=== PATIENT | female | born 1965 | race Caucasian/White ===

== ENCOUNTER 2020-07-28 05:51 | Emergency (ER) | payer OTHER ==
--- NOTE | 2020-07-28 06:17 | ED Physician Documentation ---
History of Present Illness - Stated complaint Stated Complaint: RT ARM PX - Chief complaint Chief Complaint: Ext Problem - History obtained from History obtained from: Patient - History of Present Illness Timing: Last night Pain level now: 8 Improved by: rest (not moving right shoulder) Worsened by: movement, palpation right shoulder - Additonal information Additional information: c/o right shoulder pain since last night. denies injury. worse with movement, palpation. she is right hand dominant. she moved to [facility] 2 days ago although she says her spouse did most of the work of moving. Review of Systems Constitutional: reports: Reviewed and negative Cardiac: denies: Chest pain / pressure Respiratory: denies: Dyspnea Skin: reports: Reviewed and negative Musculoskeletal: reports: Joint pain. denies: Neck pain, Back pain, Extremity pain, Extremity swelling, Joint swelling Neurologic: denies: Focal weakness, Numbness PD PAST MEDICAL HISTORY - Present Medications Home Medications: Ambulatory Orders Medication Instructions Recorded Confirmed Cyclobenzaprine [Flexeril] 10 mg PO TID PRN #20 tablet 07/28/20 oxyCODONE [Roxicodone] 5 - 10 mg PO Q6H PRN #20 tablet 07/28/20 - Allergies Allergies/Adverse Reactions: Allergies Allergy/AdvReac Type Severity Reaction Status Date / Time No Known Drug Allergies Allergy Verified 07/28/20 06:05 PD ED PE NORMAL - Vitals Vital signs reviewed: Yes - General General: Alert and oriented X 3, No acute distress (at rest, but obvious pain with movement involving right shoulder), Well developed/nourished - Neck Neck: No bony TTP - Respiratory Respiratory: No respiratory distress, Clear bilaterally - Derm Derm: Normal color, Warm and dry, No rash - Extremities Extremities: No deformity, No edema - Neuro Neuro: No motor deficit, No sensory deficit PD ED PE EXPANDED - Extremities Extremities: Tenderness, Limited ROM, Bruising (old-appearing, nontender echymosis superior aspect of right shoulder), Right shoulder. No: Swelling, Abrasion, Joint effusion, Red warm joint Results - Vitals Vitals: Vital Signs - 24 hr 07/28/20 07/28/20 06:00 07:10 Temperature 36.1 C L Heart Rate 76 79 Respiratory 17 16 Rate Blood Pressure 170/87 H 140/81 H O2 Saturation 98 97 Oxygen O2 Source Room air PD MEDICAL DECISION MAKING - ED course Complexity details: considered differential, d/w patient ED course: suspected diagnoses included strain (recently moved to the [place]), bursitis (in new living environment including new bed, new desk where she sits and works on her computer). less likely are tendinopathy or artropathy due to recent fluoroquinolone use. also consider osteoarthritis. no evidence of infectious process, no acute injury. Departure - Departure Disposition: 01 Home, Self Care Clinical Impression: Shoulder pain Condition: Good Instructions: ED Joint Pain, ED Tendinitis Rotator Cuff Follow-Up: Alon Garcia MD [Provider Admit Priv/Credential] - Prescriptions: Cyclobenzaprine [Flexeril] 10 mg PO TID PRN #20 tablet PRN Reason: Spasms oxyCODONE [Roxicodone] 5 - 10 mg PO Q6H PRN #20 tablet PRN Reason: Pain Discharge Date/Time: 07/28/20 07:12
[2020-07-28] MEDS ORDERED: oxyCODONE 5 MG TABLET PO STA (06:42)
[2020-07-28] MEDS ORDERED: CYCLOBENZAPRINE 10 MG TABLET PO STA (06:42)
[2020-07-28] MEDS ORDERED: MORPHINE 2 MG/ML CARPUJECT IM STA (06:54)
[2020-07-28 07:17] VITALS: BP 140/81
== END 2020-07-28 07:12 | disposition home or self-care (01) ==
LOC: ED 05:51
DX: M25.511 Pain in right shoulder (principal)
CPT/HCPCS: 96372; 99283; 99284; A9270

== ENCOUNTER 2020-07-30 08:45 | Emergency (ER) | payer OTHER ==
[2020-07-30 10:38] LABS: BASOPHILS % (AUTO) 0.1 %; EOSINOPHILS # (AUTO) 0.1 10^3/uL (0.0-0.7); EOSINOPHILS % (AUTO) 1.4 %; HGB - HEMOGLOBIN 12.8 g/dL (12.0-16.0); LYMPHOCYTES # (AUTO) 0.9 10^3/uL (1.5-3.5); LYMPHOCYTES % (AUTO) 13.4 %; MEAN CORPUSCULAR HGB CONC 32.7 g/dL (32.0-36.0); MONOCYTES % (AUTO) 13.8 %; PLT - PLATELET COUNT 267 10^3/uL (130-450); RED CELL DISTRIBUTION WIDTH 13.5 % (12.0-15.0)
[2020-07-30 10:48] LABS: ALBUMIN 3.3 g/dL (3.2-5.5); BILIRUBIN,TOTAL 0.7 mg/dL (0.2-1.0); CALCIUM 9.3 mg/dL (8.5-10.3); CREATININE 0.6 mg/dL (0.4-1.0); TOTAL PROTEIN 6.5 g/dL (6.7-8.2)
[2020-07-30] MEDS ORDERED: DEXAMETHASONE 10 MG/ML VIAL IVP STA ×2 (11:12→14:16)
--- NOTE | 2020-07-30 11:41 | ED Physician Documentation ---
History of Present Illness - Stated complaint Stated Complaint: LT HAND PX/RT HIP PX - Chief complaint Chief Complaint: General - History obtained from History obtained from: Patient - History of Present Illness Timing: How many days ago (4) - Additonal information Additional information: 55 y/o female has had 2 bouts of diverticulitis and 4 courses of antibiotic in the past 2 months. She has moved here from [place] and is now establishing with Dr. Bradshaw. She reports that she has now developed pains in various parts of her body that are coming and going. She has pain in the right shoulder and neck for more than a week and she has subsequently developed a pain in the right ankle without noted swelling or erythema and starting last night she developed pain in the dorsum of the left hand and the redness and swelling have increased over night. She has some pain in the lower abdomen again and this seems different than the diverticular pain. Review of Systems Constitutional: reports: Myalgias, Fatigue. denies: Fever Eyes: denies: Decreased vision Ears: denies: Ear pain Nose: denies: Rhinorrhea / runny nose, Congestion Throat: denies: Sore throat Cardiac: denies: Chest pain / pressure, Palpitations Respiratory: denies: Dyspnea, Cough GI: denies: Abdominal Pain, Nausea, Vomiting, Constipation, Diarrhea : denies: Dysuria, Frequency Skin: reports: Rash Musculoskeletal: reports: Neck pain, Back pain, Extremity pain, Joint pain, Pain with weight bearing Neurologic: denies: Generalized weakness, Focal weakness, Numbness PD PAST MEDICAL HISTORY - Present Medications Home Medications: Ambulatory Orders Medication Instructions Recorded Confirmed Cyclobenzaprine [Flexeril] 10 mg PO TID PRN #20 tablet 07/28/20 oxyCODONE [Roxicodone] 5 - 10 mg PO Q6H PRN #20 tablet 07/28/20 Cephalexin [Keflex] 500 mg PO Q6H #28 capsule 07/30/20 predniSONE [Deltasone] 10 mg PO ONCE #26 tablet 07/30/20 - Allergies Allergies/Adverse Reactions: Allergies Allergy/AdvReac Type Severity Reaction Status Date / Time No Known Drug Allergies Allergy Verified 07/30/20 08:55 PD ED PE NORMAL - Vitals Vital signs reviewed: Yes (hpyertensive .) - General General: Alert and oriented X 3, No acute distress, Well developed/nourished - HEENT HEENT: Atraumatic, PERRL, EOMI - Neck Neck: Supple, no meningeal sign, No bony TTP - Cardiac Cardiac: RRR, No murmur - Respiratory Respiratory: No respiratory distress, Clear bilaterally - Abdomen Abdomen: Normal bowel sounds, Soft, Non distended, Other (Tender to the pelvic brim bilaterally ) - Back Back: No CVA TTP, No spinal TTP - Derm Derm: Normal color, Warm and dry - Extremities Extremities: No deformity, No edema, Other (There is swelling, point tenderness and erythema to the dorsum of the left hand without lymphangitic streaking. There is tenderness to the right ankle anterior and medially. no redness or swelling. 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, No motor deficit, No sensory deficit, Normal speech Eye Opening: Spontaneous Motor: Obeys Commands Verbal: Oriented GCS Score: 15 - Psych Psych: Normal mood, Normal affect Results - Vitals Vitals: Vital Signs - 24 hr 07/30/20 07/30/20 07/30/20 08:51 09:18 11:00 Temperature 37.0 C 37.0 C 37.0 C Heart Rate 95 95 92 Respiratory 16 16 16 Rate Blood Pressure 135/95 H 135/95 H 130/90 H O2 Saturation 95 95 94 07/30/20 07/30/20 13:00 14:31 Temperature 36.6 C Heart Rate 88 89 Respiratory 16 18 Rate Blood Pressure 149/92 H 156/102 H O2 Saturation 95 98 Oxygen O2 Source Room air - Labs Labs: Laboratory Tests 07/30/20 07/30/20 07/30/20 10:25 10:25 10:35 WBC 7.0 RBC 4.00 L Hgb 12.8 Hct 39.2 MCV 98.0 MCH 32.0 H MCHC 32.7 RDW 13.5 Plt Count 267 MPV 9.0 Neut # (Auto) 5.0 Lymph # (Auto) 0.9 L [place] # (Auto) 1.0 Eos # (Auto) 0.1 Baso # (Auto) 0.0 Absolute Nucleated RBC 0.00 Nucleated RBC % 0.0 ESR 45 H Sodium 137 Potassium 3.7 Chloride 104 Carbon Dioxide 23 Anion Gap 10.0 BUN 6 Creatinine 0.6 Estimated GFR (MDRD) 103 Glucose 99 Calcium 9.3 Total Bilirubin 0.7 AST 21 ALT 19 Alkaline Phosphatase 90 C-Reactive Protein Total Protein 6.5 L Albumin 3.3 Globulin 3.2 Albumin/Globulin Ratio 1.0 Lipase 19 L Urine Color Urine Clarity Urine pH Ur Specific [place] Urine Protein Urine Glucose (UA) Urine Ketones Urine Occult Blood Urine Nitrite Urine Bilirubin Urine Urobilinogen Ur Leukocyte Esterase Urine RBC Urine WBC Ur Squamous Epith Cells Urine Bacteria Ur Microscopic Review Urine Culture Comments 07/30/20 07/30/20 10:35 12:39 WBC RBC Hgb Hct MCV MCH MCHC RDW Plt Count MPV Neut # (Auto) Lymph # (Auto) [place] # (Auto) Eos # (Auto) Baso # (Auto) Absolute Nucleated RBC Nucleated RBC % ESR Sodium Potassium Chloride Carbon Dioxide Anion Gap BUN Creatinine Estimated GFR (MDRD) Glucose Calcium Total Bilirubin AST ALT Alkaline Phosphatase C-Reactive Protein 12.6 H Total Protein Albumin Globulin Albumin/Globulin Ratio Lipase Urine Color YELLOW Urine Clarity CLEAR Urine pH 8.0 H Ur Specific [place] 1.020 Urine Protein NEGATIVE Urine Glucose (UA) NEGATIVE Urine Ketones NEGATIVE Urine Occult Blood TRACE-LYSE Urine Nitrite NEGATIVE Urine Bilirubin NEGATIVE Urine Urobilinogen 0.2 (NORMAL) Ur Leukocyte Esterase TRACE H Urine RBC 0-5 Urine WBC 0-3 Ur Squamous Epith Cells NONE SEEN Urine Bacteria Moderate H Ur Microscopic Review INDICATED Urine Culture Comments INDICATED - Rads (name of study) CT ab/pel with Radiology: Prelim report reviewed PD MEDICAL DECISION MAKING - ED course Complexity details: reviewed results, re-evaluated patient, considered differential, d/w patient ED course: 55y/o female with swelling and pain to the dorsum of the left hand consistent w ith a cellulitis has pains in her right shoulder and right ankle as well. She is somehow relating this to courses of antibiotic she has taken for diverticulitis. Today we found her inflammatory markers are elevated and she does have what appears to be cellulitis. She is placed back onto antibiotic and she is given a dose of dexamethasone here and we will place her on a course of prednisone. She has had prior issue with autoimmune urticaria. I have asked her to follow-up with a picture frame maker. Departure - Departure Disposition: 01 Home, Self Care Clinical Impression: Myofascial pain Cellulitis Qualifiers: Site of cellulitis: extremity Site of cellulitis of extremity: upper extremity Laterality: left Qualified Code(s): L03.114 - Cellulitis of left upper limb Condition: Stable Instructions: ED Infec Skin Cellulitis, ED Myofascial Pain Syndrome Follow-Up: Anthony Bradshaw MD [Provider Admit Priv/Credential] - Prescriptions: predniSONE [Deltasone] 10 mg PO ONCE #26 tablet Cephalexin [Keflex] 500 mg PO Q6H #28 capsule Comments: Today your inflammatory markers are elevated and it looks like you have an infection in the left hand. If your redness and swelling worsen this is a reason to return to the ED. Follow up with your primary to get a referral to a picture frame maker . Discharge Date/Time: 07/30/20 14:46
[2020-07-30 12:45] LABS: BILIRUBIN,URINE NEGATIVE (NEGATIVE); GLUCOSE, URINE (UA) NEGATIVE (NEGATIVE); KETONES,URINE (UA) NEGATIVE (NEGATIVE); LEUKOCYTE ESTERASE, URINE TRACE (NEGATIVE); NITRITE,URINE NEGATIVE (NEGATIVE); OCCULT BLOOD,URINE TRACE-LYSE (NEGATIVE); PROTEIN,URINE NEGATIVE (NEGATIVE); UROBILINOGEN,URINE 0.2 (NORMAL) E.U./dL (NORMAL)
[2020-07-30 12:46] LABS: CLARITY,URINE CLEAR (CLEAR)
[2020-07-30 12:58] LABS: BACTERIA,URINE Moderate /HPF (None Seen); RBC,URINE 0-5 /HPF (0-5); SQUAMOUS EPITHELIAL CELL,UR NONE SEEN (<= Few)
[2020-07-30] MEDS ORDERED: IOVERSOL 320 100 ML VIAL IVP ONE ×2 (13:02→13:20)
--- NOTE | 2020-07-30 13:37 | CT Report ---
PROCEDURE: Abdomen/Pelvis W INDICATIONS: RLQ pain CONTRAST: IV CONTRAST: Optiray 320 ml: 100 PO CONTRAST: *NO PO CONTRAST TECHNIQUE: After the administration of weight appropriate dose of intravenous contrast, 5 mm thick sections acqu ired from the diaphragms to the symphysis. 5 mm thick coronal and sagittal reformats were acquired. For radiation dose reduction, the following was used: automated exposure control, adjustment of mA and/or kV according to patient size. COMPARISON: None. FINDINGS: Image quality: Excellent. ABDOMEN: Lung bases: Lung bases are clear. Heart size is normal. Solid organs: Liver and spleen are normal in size and enhancement. Gallbladder is unremarkable. Bi liary system is non dilated. Pancreas enhances normally. No adrenal nodules. Kidneys demonstrate n ormal size and enhancement, without hydronephrosis. There is a 2.8 cm near fluid attenuation hypoden se lesion within the anterior margin of the spleen. Peritoneum and bowel: Bowel loops demonstrate normal wall thickness and caliber. A few scattered co lonic diverticula are visualized without acute inflammatory changes. Appendix is normal. No free flui d or air. Nodes and vessels: No retroperitoneal or mesenteric adenopathy by size criteria. Aorta and inferior vena cava are normal in size. Miscellaneous: No ventral hernias. PELVIS: Genitourinary: Bladder wall thickness is normal. Miscellaneous: No inguinal hernias or adenopathy. Bones: No suspicious bony lesions. No acute vertebral body compression fractures. IMPRESSION: 1. CT abdomen and pelvis without acute abnormalities identified to explain patient's symptoms. 2. Normal appendix. 3. Scattered colonic diverticulosis without acute diverticulitis. 4. A 2.8 cm splenic hypodensity which is incompletely characterized but likely represents a splenic c yst. Consider outpatient ultrasound to further characterize. Reviewed by: Raffy Crabtree MD on 07/30/2020 1:36 PM PDT Approved by: Raffy Crabtree MD on 07/30/2020 1:36 PM PDT Station ID: [id number]
[2020-07-30] MEDS ORDERED: cephALEXin 250 MG CAPSULE PO STA (14:16)
[2020-07-30 14:31] VITALS: BP 156/102
== END 2020-07-30 14:46 | disposition home or self-care (01) ==
LOC: ED 08:45
DX: L03.114 Cellulitis of left upper limb (principal); M79.18 Myalgia, other site; R76.8 Other specified abnormal immunological findings in serum; R79.82 Elevated C-reactive protein (CRP); M54.2 Cervicalgia; M25.511 Pain in right shoulder; M25.571 Pain in right ankle and joints of right foot; R10.2 Pelvic and perineal pain; Z87.19 Personal history of other diseases of the digestive system
CPT/HCPCS: 36415; 74177; 80053; 81001; 83690; 85025; 85651; 86140; 87086; 96374; 99284; A9270; Q9967; 81003

== ENCOUNTER 2023-03-06 13:57 | Outpatient (CLI) | payer OTHER ==
--- NOTE | 2023-03-07 12:11 | Mammography Report ---
BILATERAL DIGITAL SCREENING MAMMOGRAM 3D/2D: 03/06/2023 CLINICAL: Routine screening. Family history of breast cancer. No prior exams were available for comparison. There are scattered areas of fibroglandular density in both breasts (category b / 25%-50% glandular t issue). No significant masses, calcifications, or other findings are seen in either breast. IMPRESSION: NEGATIVE There is no mammographic evidence of malignancy. A 1 year screening mammogram is recommended. Based on Tyrer-Cuzick model (a risk assessment model), the patient's lifetime risk is 22.1% and her 1 0 year risk is 8.9%. If a patient has an elevated risk, a more comprehensive evaluation should be con sidered and/or a referral to a genetic counselor. The [place] [employer], [place] [employer], and NCCN Guidelines advise the consideration of Breast MRI as an adjunct to screening mammog tay in patients whose "Lifetime risk to develop breast cancer" is 20% or higher. This exam was interpreted at Station ID: [id number]. NOTE: For mammograms, a report in lay terms will be sent to the patient. Approximately 15% of breast malignancies will not be visualized mammographically. In the management of a palpable breast mass, a negative mammogram must not discourage biopsy of a clinically suspicious lesion. Electronically Signed By: Lashonda byrd/merced:03/06/2023 17:30:45 letter sent: No_Letter ACR BI-RADS Category 1: Negative 3341F PARENCHYMAL PATTERN: (A) - The breast(s) demonstrate(s) scattered fibroglandular densities. BI-RADS CATEGORY: (1) - 1 Mammogram [id number] 1 year screening LATERALITY: (B)
== END 2023-03-06 13:58 | disposition home or self-care (01) ==
LOC: DI 13:57
PROVIDERS: ATTEND Internal Medicine
DX: Z12.31 Encounter for screening mammogram for malignant neoplasm of breast (principal); Z80.3 Family history of malignant neoplasm of breast

== ENCOUNTER 2023-03-06 13:58 | Outpatient (CLI) | payer OTHER ==
--- NOTE | 2023-03-06 14:58 | CT Report ---
PROCEDURE: Low Dose Lung Cancer Screen INDICATIONS: FORMER SMOKER TECHNIQUE: Noncontrast low-dose axial images were acquired from the pulmonary apices to the posterior costophren ic angles. Multiplanar MIP reformats were then reconstructed. For radiation dose reduction, the follo wing was used: automated exposure control, adjustment of mA and/or kV according to patient size. COMPARISON: None. FINDINGS: Image quality: Excellent. Prior cancer history: Unsure. Lungs and pleura: No pleural effusions. No pneumothorax. No suspicious pulmonary nodules which requi re follow up. Mediastinum: Heart size is normal. No pericardial effusions. No mediastinal adenopathy by size criter ia. No large vessel abnormality. No coronary calcifications. Chest wall and lower neck: Thyroid is unremarkable. No axillary or supraclavicular adenopathy by size . Bones: No aggressive osseous abnormality. Upper Abdomen: Unremarkable. IMPRESSION: Lung RAD: 1 - Negative. Recommendation: Continue annual screening in 12 Months with LDCT Non-Lung Significant Findings: None Reviewed by: Tyrese Alex on 03/06/2023 2:57 PM PDT Approved by: Tyrese Alex on 03/06/2023 2:57 PM PDT Station ID: [id number]
== END 2023-03-06 13:59 | disposition home or self-care (01) ==
LOC: DI 13:58
PROVIDERS: ATTEND Internal Medicine
DX: Z12.2 Encounter for screening for malignant neoplasm of respiratory organs (principal); Z87.891 Personal history of nicotine dependence

== ENCOUNTER 2023-04-20 15:08 | Outpatient (CLI) | payer OTHER ==
--- NOTE | 2023-04-20 16:53 | XRAY Report ---
PROCEDURE: Lumbar Spine 2 View INDICATIONS: LOW BACK PAIN TECHNIQUE: 2 views of the lumbar spine were acquired. COMPARISON: None. FINDINGS: Bones: 5 [id number] vertebrae are present. Generalized osteopenia. Trace dextroconvex curvature . Mild 4 mm grade 1 anterolisthesis of L1 on L2. No vertebral body compression fractures. No suspici ous bony lesions. Multilevel disc space narrowing and degenerative endplate changes and multilevel f acet hypertrophy are seen. Soft tissues: Overlying bowel gas pattern is normal. No suspicious soft tissue calcifications. IMPRESSION: Moderate multilevel spondylosis. MRI could be performed for further evaluation if indica rodolfo clinically. Reviewed by: Prieto Finch MD on 04/20/2023 4:51 PM PDT Approved by: Prieto Finch MD on 04/20/2023 4:51 PM PDT Station ID: [id number]
== END 2023-04-20 15:09 | disposition home or self-care (01) ==
LOC: DI 15:08
PROVIDERS: ATTEND Internal Medicine
DX: M47.816 Spondylosis without myelopathy or radiculopathy, lumbar region (principal)

== ENCOUNTER 2024-01-28 12:17 | Outpatient (CLI) | payer BC ==
--- NOTE | 2024-01-28 15:08 | XRAY Report ---
PROCEDURE: Elbow 1-2V RT INDICATIONS: RIGHT ELBOW PAIN TECHNIQUE: 2 views of the elbow were acquired. COMPARISON: None. FINDINGS: Bones: No fractures or dislocations. No suspicious bony lesions. Soft tissues: No effusion. No suspicious soft tissue calcifications or masses. IMPRESSION: No acute bony abnormality. Reviewed by: Lashonda Malik MD on 01/28/2024 3:06 PM PDT Approved by: Lashonda Malik MD on 01/28/2024 3:06 PM PDT Station ID: [id number]
--- NOTE | 2024-01-28 16:41 | XRAY Report ---
PROCEDURE: Wrist 3+V RT INDICATIONS: RIGHT WRIST SWELLING TECHNIQUE: 3 views of the wrist were acquired. COMPARISON: None. FINDINGS: Bones: No fractures or dislocations. No suspicious bony lesions. Moderate osteoarthritic changes, m ost pronounced at the triscaphe joint and at the first carpometacarpal joint. Soft tissues: No suspicious soft tissue calcifications or masses. IMPRESSION: 1. No acute bony abnormality. 2. Moderate osteoarthritis. Reviewed by: Elisha Weldon MD on 01/28/2024 4:40 PM PDT Approved by: Elisha Weldon MD on 01/28/2024 4:40 PM PDT Station ID: [id number]
== END 2024-01-28 12:18 | disposition home or self-care (01) ==
LOC: DI 12:17
PROVIDERS: ATTEND Physician Assistant Medical
DX: M19.031 Primary osteoarthritis, right wrist (principal); M18.11 Unilateral primary osteoarthritis of first carpometacarpal joint, right hand; M25.521 Pain in right elbow

== ENCOUNTER 2024-05-17 05:16 | Emergency (ER) | payer BC ==
--- NOTE | 2024-05-17 05:42 | ED Physician Documentation ---
History of Present Illness - Stated complaint Stated Complaint: LEG BLISTERS - Chief complaint Chief Complaint: Wound - History obtained from History obtained from: Patient - Additonal information Additional information: HPI from patient. Patient c/o burning and pruritic lesions to BLE. She denies h/o similar rash. She initially had small, red, pruritic lesions 3-4 days ago to bilateral posterior calves which she thought were likely mosquito bites, but these lesions have slowly evolved into large lesions that are increasingly pruritic and causing burning discomfort. Evaluated in outpatient setting , was told to use calamine lotion; she has been doing so but without relief of the pruritis. Patient denies fevers, recent travel (lives in [facility]). She is not diabetic. Recently started on two new medications (statin, losartan; both started approximately 10 days ago). PD PAST MEDICAL HISTORY - Past Medical History Past Medical History: Yes Cardiovascular: Hypertension, High cholesterol - Past Surgical History Past Surgical History: No - Present Medications Home Medications: Ambulatory Orders Medication Instructions Recorded Confirmed Losartan [Cozaar] 50 mg PO BID 05/17/24 05/17/24 Rosuvastatin Calcium 40 mg PO DAILY 05/17/24 05/17/24 amLODIPine [Norvasc] 5 mg PO DAILY 05/17/24 05/17/24 predniSONE [Deltasone] 10 mg PO [id number] #42 tab 05/17/24 - Allergies Allergies/Adverse Reactions: Allergies Allergy/AdvReac Type Severity Reaction Status Date / Time No Known Drug Allergies Allergy Verified 05/17/24 05:29 - Social History Does the pt smoke?: No Smoking Status: Never smoker Does the pt drink ETOH?: Yes ETOH Use: Wine Does the pt have substance abuse?: No - Immunizations Immunizations are current?: Yes - POLST Patient has POLST: No PD ED PE NORMAL - Vitals Vital signs reviewed: Yes - General General: Alert and oriented X 3, No acute distress, Well developed/nourished - Respiratory Respiratory: No respiratory distress, Clear bilaterally - Extremities Extremities: No edema PD ED PE EXPANDED - Derm SKin visual: 1 - rash (three lesions on each lower extremity, round/oval shape and flat, target appearance, limited to posterior aspect of calves and below knees and abo ve ankles. few lesions with central bulla. lesions are flat, nontender, and 2-4 cm diameter. some cobblestoning of skin surrounding the RLE distal lesion which is the only lesion with irregular borders and has large central bulla) Results - Vitals Vitals: Oxygen O2 Source Room air PD Medical Decision Making - ED course Complexity details: considered differential, d/w patient ED course: the RLE distal lesion has the largest bulla and this is unroofed with 18g ne edle; clear (serous) fluid only (no purulence). Unclear etiology. Differential includes erythema multiforme. Allergic/drug reaction not likely given the limited area involved as well as appearance atypical for allergic reaction. Lyme disease unlikely both for geographical reasons (highly unusual in [facility], particularly [facility]) as well as multiple target lesions. bug/arthropod bites with bullae is within differential diagnosis. bullous pemphigoid also considered though unlikely. Given 60 mg PO prednisone and e-prescribed 10-day taper of prednisone. Return precautions reviewed, advised to seek follow up with PCP in 2-3 days for reevaluation of the lesions. Departure - Departure Disposition: 01 Home, Self Care Clinical Impression: Rash Condition: Good Instructions: ED Erythema Follow-Up: Mansoor Rodriguez MD [Primary Care Provider] - Prescriptions: predniSONE [Deltasone] 10 mg PO [id number] #42 tab Comments: The cause of your rash is not apparent at this time. You were given a dose of steroid (prednisone) in the emergency department, and I have electronically submitted a prescription for a 10-day tapering course of prednisone to the [facility] pharmacy in [place]. Follow-up with your primary care provider in the next 2 to 3 days for reevaluation. Discharge Date/Time: 05/17/24 08:40
[2024-05-17] MEDS: predniSONE 20 MG TABLET PO STA (08:20)
[2024-05-17 08:44] VITALS: BP 142/86; O2SAT 100
== END 2024-05-17 08:40 | disposition home or self-care (01) ==
LOC: ED 05:16
DX: R21 Rash and other nonspecific skin eruption (principal); I10 Essential (primary) hypertension
CPT/HCPCS: 10160; 99283; J7512